=== PATIENT | male | born 1955 | race Caucasian/White ===

== ENCOUNTER 2020-07-13 08:00 | Day surgery (SDC) | payer OTHER ==
[~2020-07-13] VITALS: Ht 188 cm; Wt 93.0 kg
[~2020-07-13 08:00] MED LIST: CITALOPRAM HBR10 MG PO
--- NOTE | 2020-07-13 12:01 | NUR ---
07/13/20 1201 Alyson,Nay 1136 PT ARRIVED TO PACU ON 6L VIA MASK, PT REACTIVE TOT ACTILE STIMULI AND IS REORIENTED TO PACU. VSS. 1140 PT REPORTS TOLERABLE PAIN 11/04. PT DENIES NAUSEA. 1155 PT SIPPING WATER AND HOB INCREASED SLIGHTLY. PT DEEP BREATHING. VSS.
--- NOTE | 2020-07-13 14:47 | NUR ---
PT CONTINUES TO FEEL WELL. UPBEAT AND TALKATIVE, REMAINS IN THE ROOM. DISCUSSED MEDICATIONS AVAILABLE PRN INCLUDING SUPPOSITORY'S FOR BLADDER SPASMS. PT VERBALIZES UNDERSTANDING. CBI CONTINUES FLUCTUATES BETWEEN CLEAR AND LIGHT PINK.
--- NOTE | 2020-07-13 17:40 | NUR ---
PATIENT RESTING IN BED. IN ROOM. VITAL SIGNS AND I&O DONE. CALL LIGHT WITHIN REACH. NO OTHER NEEDS AT THIS TIME
--- NOTE | 2020-07-13 17:47 | NUR ---
PT CONTINUES AWAKE AND ALERT, IN ROOM BRINGS TAKE OUT FOR EVENING MEAL. PT TOLERATING PO INTAKE NO C/O NAUSEA. AGREES BELLADONNA WAS EFFECTIVE FOR SPASMS HE WAS HAVING, PERCOCET PROVIDING PAIN RELIEF, STATES HE IS COMFORTABLE. CBI STILL FLOWING TUBING IS CLEAR DIAZ BAG PUNCH COLORED.
--- NOTE | 2020-07-13 18:33 | NUR ---
DR GRIFFITH IN TO SEE PT QUESTIONS ANSWERED PLAN GOING FORWARD DISCUSSED
--- NOTE | 2020-07-13 19:20 | NUR ---
REPORT RECEIVED FROM CALE GRULLON. PATIENT ALERT AND ORIENTED, SITTING UPRIGHT IN BED. CBI WNL, LIGHT PINK IN COLOR WITH NO CLOTS NOTED. PT REPORTS NO PAIN OR NEEDS AT THIS TIME. AT BEDSIDE, CALL LIGHT IN REACH, WILL CONTINUE TO MONITOR.
--- NOTE | 2020-07-13 20:22 | NUR ---
PRN PAIN MEDICATION ADMINISTERED FOR 6/10 PAIN. 2 NEW BAGS CBI FLUID HUNG, INFUSING WNL. DRAINAGE LIGHT PINK. PT STATES NO BLADDER RETENTION. ASSESSMENT COMPLETE, VITALS AND I/O'S COMPLETE. WATER REFRESHED. CALL LIGHT IN REACH, WILL CONTINUE TO MONITOR.
--- NOTE | 2020-07-13 21:13 | NUR ---
PRN PAIN MEDICATION ADMINISTERED PER PATIENT REQUEST FOR 5/10 PAIN. CBI BAG EMPTIED, RECORDED ON BOARD. LIGHT PINK IN COLOR. PT STATES NO BLADDER RETENTION NOTICED. NO CLOTS NOTED IN TUBING OR BAG. WATER REFRESHED, CALL LIGHT IN REACH, WILL CONTINUE TO MONITOR.
--- NOTE | 2020-07-13 22:30 | NUR ---
CHECKED ON PATIENT TO ASSESS CBI, LIGHT PINK DRAINAGE, NO CLOTS NOTED. NEW BAG FLUIDS HUNG. PT REPORTS NO DISCOMFORT OR NEEDS AT THIS TIME.
--- NOTE | 2020-07-13 23:23 | NUR ---
ROUNDED ON PATIENT. CBI WNL, LIGHT PINK TO CLEAR IN COLOR. NO CLOTS NOTED. PATIENT REPORTS NO PAIN OR NEEDS AT THIS TIME. AT BEDSIDE. CALL LIGHT IN REACH, WILL CONTINUE TO MONITOR.
--- NOTE | 2020-07-14 01:07 | NUR ---
ROUNDED ON PATIENT, CBI DRAINED, 1800 OUT LIGHT PINK IN COLOR WITH NO CLOTS. PT REQUESTS PRN MEDICATION FOR 6/10 PAIN IN "ABDOMEN AND URETHRA". WATER REFRESHED, CALL LIGHT IN REACH, NO OTHER NEEDS AT THIST ANKIT.
--- NOTE | 2020-07-14 02:25 | NUR ---
PRN PAIN MEDICATION ADMINISTERED. CBI BAG EMPTIED, 3200 OUT. NEW BAG FLUID HUNG, DRAINAGE LIGHT PINK WITH NO CLOTS NOTED. VITALS COMPLETE, ASSESSMENT DONE. WARM BLANKET PROVIDED AND WATER REFRESHED, CALL LIGHT IN REACH.
--- NOTE | 2020-07-14 04:37 | NUR ---
CHECKED IN ON PATIENT, LAYING IN BED WITH EYES CLOSED. EVEN BREATHING. NO APPARENT NEEDS. WILL CONTINUE TO MONITOR.
--- NOTE | 2020-07-14 05:36 | NUR ---
VITALS AND I/O'S COMPLETE, CBI EMPTIED, CRANBERRY IN COLOR. PRN PAIN MEDICATION REQUESTED FOR 5/10 PAIN, ADMINISTERED. WATER REFRESHED. CALL LIGHT IN REACH, STATES NO OTHER NEEDS.
--- NOTE | 2020-07-14 06:43 | NUR ---
ROUNDED ON PT. CBI IRRIGATION BAGS FINISHED; COLOR LIGHT PINK IN DIAZ. IRRIGATION CLAMPED AT THIS TIME TO ATTEMPT NORMAL URINE OUTPUT. PT AGREES.
--- NOTE | 2020-07-14 07:15 | NUR ---
REPORT RECEIVED FROM YADI KRISHNA. PT HAD GOOD NIGHT AND HAS BEEN TITRATED OFF OF CBI FLUIDS. PT AWAKE AND TALKATIVE THIS MORNING. GIVEN ICE WATER AND WOULD LAIKE SOME PERCO.
--- NOTE | 2020-07-14 07:57 | NUR ---
ADMINISTERED MORNING MEDICATIONS AND PERCO. PT DIAZ MEDIUM PINK, WILL ADD ANOTHER BAG OF FLUIDS AND SLOW DRIP. BREAKFAST AT BEDSIDE. PT DENIES CONCERNS. ASSESSMENT DONE.
--- NOTE | 2020-07-14 09:01 | NUR ---
CBI RESTARTED AT THIS TIME AT A SLOW DRIP.
--- NOTE | 2020-07-14 09:34 | NUR ---
PATIENT SITTING UP IN BED. IN ROOM. VITAL SIGNS AND I&O DONE. CALL LIGHT WITHIN REACH. NO OTHER NEEDS AT THIS TIME
[2020-07-14] MEDS ORDERED: CIPRO500 MG PO (09:40)
[2020-07-14] MEDS ORDERED: PERCOCET 5-3251 EACH PO (09:41)
--- NOTE | 2020-07-14 10:05 | NUR ---
CALLED DR GRIFFITH. SHE GAVE OK TO DISCHARGE. PT CLAMPED AND DOING WELL. EMILY HAS SMALL CLOTS AND LIGHT PINK.
--- NOTE | 2020-07-14 10:40 | NUR ---
MED REC COMPLETE
--- NOTE | 2020-07-14 11:23 | PATH ---
[facility] [address] [place], [place] [address] Signed SPECIMEN(S): A PROSTATE CHIPS SPECIMEN SOURCE: A. PROSTATE CHIPS CLINICAL HISTORY: BPH with LUTS. FINAL PATHOLOGIC DIAGNOSIS: Prostate chips, transurethral resection: - Benign prostatic hyperplasia with scattered foci of chronic inflammation. NAL:cml:C2NR MICROSCOPIC EXAMINATION: Histologic sections of all submitted blocks are examined by light microscopy. These findings, together with the gross examination, support the pathologic diagnosis. GROSS DESCRIPTION: The specimen, labeled "RO, prostate chips," is received in formalin and consists of 25 grams of pink-montana, rubbery tissue fragments that aggregate measure 9.0 x 5.7 x 1.9 cm. Approximately 65% of the specimen is submitted in 11 cassettes (A1-A11). JS (under the direct supervision of a pathologist) The Gross Description was prepared using a voice recognition system. The report was reviewed for accuracy; however, sound-alike word errors, addition and/or deletions may occur. If there is any question about this report, please contact Client Services. PERFORMING LABORATORY: The technical component was performed by [facility], [address] [place] [id number] (Dental Lab Technician: Valeria Thorpe MD; CLIA# [id number]). [facility], [address] [address] (CLIA# [id number]). Diagnostician: Ailyn Marcano MD Pathologist Electronically Signed 07/14/2020 PATIENT NAME: LOIS BONILLA PATHOLOGY DATE OF : 59 REPORT #: [id number] PHYSICIAN: ELIDA PATHOLOGY PCP: EDISON HUNTER PA-C REPORT IS CONFIDENTIAL AND NOT TO BE RELEASED WITHOUT AUTHORIZATION [address] [address] Signed Copies: ~ PATIENT NAME: LOIS BONILLA PATHOLOGY DATE OF : 59 REPORT #: [id number] PHYSICIAN: ELIDA PATHOLOGY PCP: EDISON HUNTER PA-C REPORT IS CONFIDENTIAL AND NOT TO BE RELEASED WITHOUT AUTHORIZATION
--- NOTE | 2020-07-14 13:38 | NUR ---
CONNECTED WITH PT HE WAS LEAVING. HE THANKED STAFF FOR CARE HE RECEIVED HERE, GAVE ENCOURAGEMENT AND BLESSING
--- NOTE | 2020-07-20 08:17 | OR ---
[facility] [address] [place], [place] [address] Signed DATE OF OPERATION: 07/13/2020 SURGEON: Darin Griffith MD PREOPERATIVE DIAGNOSIS: Trilobar benign prostatic hyperplasia with lower urinary tract symptoms. POSTOPERATIVE DIAGNOSIS: Trilobar benign prostatic hyperplasia with lower urinary tract symptoms. NAMES OF PROCEDURES: 1. Urethral dilation from 18-Libyan to 30-Libyan using [place] sounds. 2. Transurethral resection of the prostate. ANESTHESIA: General. ESTIMATED BLOOD LOSS: 150 mL. COMPLICATIONS: None. SPECIMENS: Prostate chips sent to pathology for evaluation. DRAINS: A 22-Libyan 3-way Ingram catheter, connected to continuous bladder irrigation. INDICATIONS FOR PROCEDURE: Mr. Bonilla is a very pleasant healthy 64-year-old gentleman, who is well known to me. I have been seeing him for the past 1 to 2 years for management of [id number] lower urinary tract symptoms, secondary to benign prostatic hyperplasia. He has been on Flomax for at least 16 months now and his symptoms have failed to fully respond to the medication. He underwent diagnostic cystoscopy earlier that year, which revealed rather severe trilobar benign prostatic hyperplasia, along with evidence of long-standing bladder outlet obstruction. After discussion of the risks and benefits of the procedure, the patient has elected to undergo transurethral resection of the prostate. Of note, he verbalized understanding of his risks of retrograde ejaculation, postoperative hemorrhage, and possible sexual dysfunction/urinary incontinence. He Electronically Signed By: DARIN GRIFFITH MD 07/20/20 0817 PATIENT NAME: LOIS BONILLA OPERATIVE REPORT DATE OF : 59 REPORT #: [id number] PHYSICIAN: DARIN GRIFFITH MD PCP: EDISON HUNTER PA-C REPORT IS CONFIDENTIAL AND NOT TO BE RELEASED WITHOUT AUTHORIZATION [facility] [address] [place], [place] [address] Signed understands these risks and has agreed to proceed today. OPERATIVE FINDINGS: 1. Cystoscopy reveals moderate trilobar prostatic hypertrophy with a prominent median lobe and elevated bladder neck. Bilateral ureteral orifices are in their normal anatomic location and effluxing clear urine. The ureteral orifices are somewhat adjacent to the bladder neck. 2. The median lobe of the prostate was resected first, down to the level of the bladder neck. Also, using a 24-Libyan bipolar loop, I resected both the left and right lobe of the prostate without difficulty. As per the patient's request, I did not take the resection down to the level of the capsule on either side in order to prevent potential sexual dysfunction associated with TURP. 3. At the end of the procedure and after the prostate chips were irrigated from the patient's bladder, a 22-Libyan 3-way Ingram catheter was inserted into the patient's bladder and connected to continuous bladder irrigation. DESCRIPTION OF PROCEDURE: After informed consent was obtained, the patient was taken back to the operating room. He was transferred from [facility] to the operating room table, where general anesthesia was induced. The patient was placed in the dorsal lithotomy position and his genitalia were prepped and draped in a standard sterile fashion. His urethra was then dilated using [place] sounds from 18-Libyan to 30-Libyan without difficulty. Using a 30-degree lens on a 22.5-Libyan introducer, a rigid cystoscope was inserted into his bladder and a diagnostic cystoscopy was performed. Please see above findings. The cystoscope was then removed and replaced with a resectoscope. A 26-Libyan sheath was placed using a visual obturator prior to insertion of this resectoscope. Once the resectoscope was inserted, I visualized both the prostatic urethra and the bilateral ureteral orifices. I then began resecting the median lobe of the prostate using a 24-Libyan loop with bipolar cautery. After resecting the lead median lobe, I then resected both the left and right lobes of the prostate. I did spare approximately 1.5 cm of tissue on both sides of the capsule. The resection was performed without any difficulty. It was noted that the patient had a relatively large prostate with a lot of prostate tissue to be resected. In the middle of the resection, I did irrigate the patient's bladder with a Nic syringe and removed all the chips from the patient's bladder. This was performed 3 or 4 times during the procedure. Once I was satisfied that a good deal of the prostheses tissue had been removed with the loop, I switched to the bipolar button. I continued with a small amount of resection, but then I began to cauterize the prostatic urethra to achieve and maintain hemostasis using the bipolar button. The patient's bladder was then irrigated again using a Nic syringe and more chips were removed from the patient's bladder. Once all the chips were out of the bladder, they were placed in a specimen cup to be sent to pathology for evaluation. I re-evaluated the bilateral ureteral orifices to be sure that there was no evidence of Electronically Signed By: DARIN GRIFFITH MD 07/20/20 0817 PATIENT NAME: LOIS BONILLA OPERATIVE REPORT DATE OF : 59 REPORT #: [id number] PHYSICIAN: DARIN GRIFFITH MD PCP: EDISON HUNTER PA-C REPORT IS CONFIDENTIAL AND NOT TO BE RELEASED WITHOUT AUTHORIZATION [facility] [address] [place], [place] [address] Signed any iatrogenic damage, which was not the case. Once I was satisfied that all the chips were out of the bladder and that adequate hemostasis was achieved, I removed the resectoscope, leaving the sheath in place. A 0.035 Sensor wire was inserted through the sheath and into the patient's bladder. The sheath was removed fully intact. Over the wire, I passed a 22-Libyan 3-way into the patient's bladder. The Ingram balloon was filled with 30 mL of sterile water. I then manually irrigated the Ingram catheter to be sure the catheter was then properly positioned. The catheter was then connected to continuous bladder irrigation. The procedure was then terminated. The patient tolerated the procedure well without any complication. He will now be transferred to the Postanesthesia Care Unit in stable condition. DISPOSITION: I discussed the details of today's procedure with the patient's and answered all of her questions. He will be placed in observation overnight, so that his continuous bladder irrigation may be weaned off slowly to keep his urine clear to light pink in color. His diet will be restarted and advanced as tolerated and he will be given pain control as needed. Tomorrow morning after his dose of antibiotic, he will be discharged to home with his Ingram catheter gravity drainage. He will be sent home today with Cipro 500 mg p.o. b.i.d. for a total of 10 days along with Percocet 5/325 q.6 hours p.r.n. pain, dispense #20. He was scheduled to return to clinic this July 15 to undergo a routine voiding trial. MD GARLAND Fair/MODL /[id number] Copies: ~ Electronically Signed By: DARIN GRIFFITH MD 07/20/20 0817 PATIENT NAME: LOIS BONILLA OPERATIVE REPORT DATE OF : 59 REPORT #: [id number] PHYSICIAN: DARIN RGIFFITH MD PCP: EDISON HUNTER PA-C REPORT IS CONFIDENTIAL AND NOT TO BE RELEASED WITHOUT AUTHORIZATION
== END 2020-07-14 10:45 | disposition home or self-care (01) ==
LOC: DS 08:00 → OPS 08:00 → DS 09:30 → OPS 09:30 → MS 11:44 → OPS 07-14 10:45
PROVIDERS: ATTEND Urology
PROC: 0VB08ZZ Excision of Prostate, Via Natural or Artificial Opening Endoscopic (ICD-10-PCS; principal; 2020-07-13 09:30)
DX: N40.1 Benign prostatic hyperplasia with lower urinary tract symptoms (principal); N13.8 Other obstructive and reflux uropathy; N32.89 Other specified disorders of bladder; I10 Essential (primary) hypertension; R97.20 Elevated prostate specific antigen [PSA]; Z79.899 Other long term (current) drug therapy; Z87.891 Personal history of nicotine dependence
CPT/HCPCS: 00914; C1769; J0131; J0690; J0696; J1100; J1170; J2001; J2405; J2704; J3010; J7030; J7121

== ENCOUNTER 2021-12-20 12:48 | Day surgery (SDC) | payer OTHER ==
[~2021-12-20] VITALS: Ht 188 cm; Wt 89.5 kg
[~2021-12-20 12:48] MED LIST changes: +CIPRO500 MG PO; +PERCOCET 5-3251 EACH PO
[2021-12-20] MEDS ORDERED: LISINOPRIL20 MG PO (13:06)
--- NOTE | 2021-12-20 15:13 | NUR ---
12/20/21 [address] M[address] Sifuentes 1510-PT TO PACU IN LL POSITION. RESPONDS TO VERBAL STIMULI. BREATHING EASY AND UNLABORED. SPO2 >95% ON ROOM AIR. PT ENCOURAGED TO PASS GAS.
--- NOTE | 2021-12-22 14:08 | OR ---
[facility] [address] [place], [place] [address] Signed DATE OF OPERATION: 12/20/2021 SURGEON: Ashley Brown MD PREOPERATIVE DIAGNOSES: 1. Colon screening. 2. History of presumed diverticulosis (colonoscopy 12 years ago [facility]). POSTOPERATIVE DIAGNOSIS: Polyps x2. PROCEDURE: Total colonoscopy to cecum with cold morcellation polypectomy, left colon polyp, and rectosigmoid polyp. ANESTHESIA: Intravenous sedation, fentanyl 100 mcg, and Versed 8 mg. INDICATION: This 66-year-old white man is a patient of [facility]. He works as a registered nurse at [employer]. He underwent colonoscopy 12 years ago at the [facility] and said to be normal except for diverticular changes. He has no family history of colon cancer and no symptoms currently of bleeding, diarrhea, or constipation. He is admitted to undergo colonoscopy. He understands the risks of bleeding, infection, and perforation. FINDINGS: The prep was excellent. Complete colonoscopy was undertaken to the cecum without question. He had scattered diverticula of the sigmoid. There were two small polyps, one at approximately 60 cm in the left colon, the other in the rectosigmoid, both excised with cold morcellation technique. DESCRIPTION OF PROCEDURE: The patient was brought to the endoscopy suite and placed in lateral decubitus position, given intravenous sedation to the point of slurred speech and nystagmus. Digital rectal examination was normal. An Olympus video colonoscope was passed in the rectum and manipulated throughout the colon ultimately intubating the cecum itself. The ileocecal valve and appendiceal orifice were well identified. The scope was withdrawn from that point and examination Electronically Signed By: ASHLEY BROWN MD 12/22/21 1408 PATIENT NAME: LOIS BONILLA OPERATIVE REPORT DATE OF : 59 REPORT #: [id number] PHYSICIAN: ASHLEY BROWN MD PCP: EDISON HUNTER PA-C REPORT IS CONFIDENTIAL AND NOT TO BE RELEASED WITHOUT AUTHORIZATION [facility] [address] [place], [place] [address] Signed throughout showed no sign of abnormality until the proximal descending colon where a small sessile polyp was noted, this was excised with cold morcellation technique. Further withdrawal of scope showed some diverticula of the sigmoid and left colon. At the rectosigmoid, an another small polyp was noted, this was excised with cold morcellation technique as well. Retroflexed view of the rectum was normal. Scope was removed. The patient was taken to the recovery room in good condition. CONCLUDING DIAGNOSIS: Polyps x2, minimal diverticular changes. PLAN: Recommend repeat colonoscopy in 5 years. We would recommend a high-fiber diet. Repeat colonoscopy if symptoms should occur sooner of concern. He will return to the ongoing care of MAE Cheek. MD BLANKA Butler/DONNA /[id number] cc: MA[facility] Cheek Copies: ~ Electronically Signed By: ASHLEY BROWN MD 12/22/21 1408 PATIENT NAME: YiLALOIS YANIRA OPERATIVE REPORT DATE OF : 59 REPORT #: [id number] PHYSICIAN: ASHLEY BROWN MD PCP: EDISON HUNTER PA-C REPORT IS CONFIDENTIAL AND NOT TO BE RELEASED WITHOUT AUTHORIZATION
== END 2021-12-20 15:45 | disposition home or self-care (01) ==
LOC: OPS 12:48 → DS 12:51 → OPS 14:15
PROVIDERS: ATTEND Surgery
PROC: 0DBF8ZX Excision of Right Large Intestine, Via Natural or Artificial Opening Endoscopic, Diagnostic (ICD-10-PCS; principal; 2021-12-20 14:15)
DX: Z12.11 Encounter for screening for malignant neoplasm of colon (principal); D12.2 Benign neoplasm of ascending colon; I10 Essential (primary) hypertension; K57.30 Diverticulosis of large intestine without perforation or abscess without bleeding; Z90.79 Acquired absence of other genital organ(s)
CPT/HCPCS: 99153; G0500; J2250; J3010; J7121